=== PATIENT | male | born 1965 | race African-American/Black ===

== ENCOUNTER 2018-02-16 11:29 | Emergency (ER) | payer BC ==
--- NOTE | 2018-02-16 11:36 | PDOC ---
History of Present Illness - General Chief Complaint: Shortness of Breath Stated Complaint: SWELLING FEET,ABD Time Seen by Provider: 02/16/18 11:36 History Source: Patient Exam Limitations: No Limitations - History of Present Illness Initial Comments: 02/16/18 11:38 Mr Marquez presents to the ER with a complaint of abdominal distention and shortness of breath Pt states that up until 1 week ago, he had been drinking heavily (Every other day) He has noted abdominal distention for years Over the past month, however, he began to notice lower extremity edema as will He has noticed that he is short of breath on exertion, he is winded after going up 1 flight of stairs No fevers or chills No chest pain, no palpitations No abdominal pain No nausea, (+) diarrhea No dysuria 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 PMH: denies (pt has not seen a doctor since 1999) PSH: denies Meds: denies ALL: NKDA Social: previously heavy drinker, denies tobacco, denies drug use FH: pt denies family history of DM PMD: Denies Past History - Past Medical History Allergies/Adverse Reactions: Allergies Allergy/AdvReac Type Severity Reaction Status Date / Time No Known Allergies Allergy Verified 02/16/18 11:50 Home Medications: Ambulatory Orders Furosemide [Lasix] 20 mg PO DAILY #7 tablet 02/16/18 Review of Systems - Review of Systems Able to Perform ROS?: Yes Constitutional: No: Chills, Diaphoresis, Fever, Weakness HEENTM: No: Blurred Vision, Nose Bleeding Respiratory: Yes: Orthopnea, Shortness of Breath, SOB with Exertion. No: Stridor, Wheezing, Productive cough Cardiac (ROS): Yes: Edema. No: Chest Pain, Lightheadedness, Palpitations, Syncope, Chest Tightness ABD/GI: Yes: Abdominal Distended, Diarrhea. No: Abd. Pain w/ defecation, Blood Streaked Bowels, Constipated, Nausea, Vomiting, Abdominal cramping : No: Burning, Dysuria, Discharge, Frequency, Flank Pain Musculoskeletal: No: Back Pain, Joint Pain, Muscle Pain, Muscle Weakness Integumentary: No: Bruising, Change in Color Neurological: No: Headache, Numbness, Paresthesia, Seizure, Weakness, Unsteady Gait, Dizziness Endocrine: No: Excessive Sweating, Intolerance to Cold, Intolerance to Heat Hematologic/Lymphatic: No: Anemia, Easy Bruising, Bleeding Diathesis *Physical Exam - Physical Exam General Appearance: Yes: Nourished, Appropriately Dressed. No: Apparent Distress, Disheveled, Moderate Distress HEENT: positive: Normal ENT Inspection, Normal Voice Neck: positive: Trachea midline Respiratory/Chest: positive: Crackles (bases). negative: Respiratory Distress, Accessory Muscle Use, Rhonchi, Stridor, Wheezing Cardiovascular: positive: Regular Rhythm, Regular Rate, S1, S2. negative: Murmur Gastrointestinal/Abdominal: positive: Soft, Decreased BS, Protuberent. negative : Tender, Flat, Guarding, Rebound, Hernia, Mass Musculoskeletal: positive: Normal Inspection. negative: CVA Tenderness Extremity: positive: Normal Capillary Refill, Pedal Edema, Swelling. negative: Coldness, Cyanosis, Calf Tenderness Integumentary: positive: Normal Color, Dry, Warm Neurologic: positive: canary breeder II-XII NML intact, Fully Oriented, Alert, Normal Mood/ Affect, Normal Response, Motor Strength 12/16 ED Treatment Course - LABORATORY CBC & Chemistry Diagram: 02/16/18 12:05 02/16/18 12:05 Medical Decision Making - Medical Decision Making 02/16/18 11:46 Mr Marquez presents to the ER with complaints of abdominal distention and shortness of breath His examination is concerning for fluid overloading (Ascites, pedal edema, CHF) which may be related to cirrhosis/portal hypertension Will send: Labs, inculding PT/PTT to eval for synthetic function, Type and Screen in the event pt needs transfusion Will do: CT - further eval abd Duplex - r/o DVT EKG - possible admission CXR - eval SOB Will re assess Likely admission EKG: NSR, rate of 84 bpm, axis nml, t wave inversions I, II, III, aVL, aVF, v5, v6, (+) LVH 02/16/18 12:37 Laboratory Tests 02/16/18 02/16/18 12:05 12:05 PT with INR 15.3 H INR 1.38 H Sodium 134 L Potassium 4.2 Chloride 106 Carbon Dioxide 25 BUN 20 H Creatinine 1.3 Random Glucose 104 Total Bilirubin 1.6 H AST 44 H ALT 44 H Alkaline Phosphatase 107 H 02/16/18 12:50 No DVT on US Laboratory Tests 02/16/18 12:05 WBC 7.3 Hgb 13.4 Hct 43.2 Plt Count [address] - R/o PE and Eval for ascites 02/16/18 13:28 Laboratory Tests 02/16/18 12:05 B-Natriuretic Peptide 2453.11 H 02/16/18 13:28 CXR: Cardiomegaly, increased vascular markings 02/16/18 15:58 CTA: No PE Cardiomegaly CT abd: possible cholecystitis, gb wall edema Pt told of the importance of staying in the hospital He refuses admission HE will leave AMA Note: The patient insists on leaving the emergency dept and is signing out against medical advice. The patient understands the risks and complications that may result from the refusal of medical care and admission which includes and permanent disability. The patient has the mental capacity of understanding the risks of refusing care and is capable of making an informed decision. The patient was instructed to return to the emergency department should he change his mind regarding medical care or should his condition worsen. The patient signed the Against Medical Advice form. *DC/Admit/Observation/Transfer Diagnosis at time of Disposition: CHF (congestive heart failure) Qualifiers: Heart failure type: other Qualified Code(s): I50.9 - Heart failure, unspecified Fluid overload Qualifiers: Hypervolemia type: other Qualified Code(s): E87.79 - Other fluid overload - Discharge Dispostion Disposition: AGAINST MEDICAL ADVICE Condition at time of disposition: Guarded Decision to Admit order: No - Referrals Referrals: Mario Alberto Parmar MD [Staff Physician] - - Patient Instructions Printed Discharge Instructions: DI for Heart Failure, DI for Alcohol Abuse, DI for Cholecystitis, DI for Cholecystectomy Additional Instructions: Mr Marquez You must follow up with a primary care physician within 2 days You must take medications as prescribed Return to the ER for any other concerns or complaints - Post Discharge Activity Forms/Work/School Notes: Back to Work
[2018-02-16 12:05] VITALS: TEMP 97.8; BMI 29.9
[2018-02-16 12:25] LABS: HEMATOCRIT 43.2 % (35.4-49); HEMOGLOBIN 13.4 GM/dl (11.7-16.9); LYMPH % 17.2 % (8-40); MCH 26.5 pg (25.7-33.7); MCHC 31.1 g/dl (32.0-35.9); MEAN CELL VOLUME 85.1 fl (80-96); MEAN PLT VOLUME 7.8 fl (7.5-11.1); NEUT % 67.8 % (42.8-82.8); PLATELET COUNT 281 K/MM3 (134-434); RBC 5.08 M/mm3 (4.00-5.60); RDW 15.9 % (11.9-15.9); WHITE BLOOD COUNT 7.3 K/mm3 (4.0-10.8)
[2018-02-16 12:32] LABS: ALBUMIN 3.5 g/dl (3.5-5.0); ALK PHOS 107 U/L (32-92); ANION GAP 3 (8-16); BILIRUBIN,TOTAL 1.6 mg/dl (0.2-1.0); BLOOD UREA NITROGEN 20 mg/dl (7-18); CALCIUM 8.5 mg/dl (8.4-10.2); CHLORIDE 106 mmol/L (98-107); CO2 25 mmol/L (22-28); CREATININE 1.3 mg/dl (0.6-1.3); GLUCOSE,RANDOM 104 mg/dl (74-106); POTASSIUM 4.2 mmol/L (3.5-5.1); SGOT/AST 44 U/L (10-42); SGPT/ALT 44 U/L (10-40); SODIUM 134 mmol/L (136-145); TOT PROT 6.7 g/dl (6.4-8.3)
[2018-02-16 12:35] LABS: INR 1.38 (0.82-1.09); PROTHROMBIN TIME (PATIENT) 15.3 SEC (10.2-13.0)
[2018-02-16 13:02] LABS: URINE APPEARANCE Clear; URINE BILIRUBIN Negative (NEGATIVE); URINE GLUCOSE (UA) Negative (NEGATIVE); URINE KETONE Negative (NEGATIVE); URINE LEUK ESTERASE Negative (NEGATIVE); URINE NITRITE Negative (NEGATIVE); URINE UROBILINOGEN 0.2 (0.2-1.0)
[2018-02-16 13:27] LABS: URINE COLOR AMBER; URINE PROTEIN 2+ (NEGATIVE)
[2018-02-16 13:29] LABS: URINE RBC RARE /hpf (0-3)
[2018-02-16 13:30] LABS: URINE WBC 0-2 (0-2)
[2018-02-16 14:33] VITALS: BP 155/122; PULSE 67
--- NOTE | 2018-02-18 10:16 | EKG ---
Test Reason : Blood Pressure : / mmHG Vent. Rate : 084 BPM Atrial Rate : 084 BPM P-R Int : 150 ms QRS Dur : 098 ms QT Int : 372 ms P-R-T Axes : 062 066 214 degrees QTc Int : 439 ms NORMAL SINUS RHYTHM LEFT ATRIAL ENLARGEMENT LEFT VENTRICULAR HYPERTROPHY T WAVE ABNORMALITY, CONSIDER INFEROLATERAL ISCHEMIA ABNORMAL ECG NO PREVIOUS ECGS AVAILABLE Confirmed by ISSA HUGGINS MD ([id number]) on 02/18/2018 10:15:46 AM Referred By: ARABELLA LAM Confirmed By:ISSA HUGGINS MD
== END 2018-02-16 16:17 | disposition left against medical advice (07) ==
LOC: FER 11:29
DX: I50.9 Heart failure, unspecified (principal); E87.79 Other fluid overload
CPT/HCPCS: 36415; 71045-TC-FY; 71275-TC; 74177-TC; 80053; 81003; 81015; 83880; 84443; 84484; 85025; 85610; 86850; 86900; 86901; 93005; 93970-TC; 99284-25